=== PATIENT | female | born 1995 | race Caucasian/White ===

== ENCOUNTER 2024-05-31 16:51 | Inpatient (IN) | payer OTHER ==
[~2024-05-31] VITALS: Ht 154.9 cm; Wt 73.2 kg
[2024-05-31] MEDS ORDERED: METF-1211 PO (17:40)
[2024-05-31] MEDS ORDERED: DOCU-385 PO (17:40)
[2024-05-31] MEDS ORDERED: ASCO500 PO (17:40)
[2024-05-31] MEDS ORDERED: FERR324T23 PO (17:40)
[2024-05-31 20:45] LABS: GLUCOMETER DEV NAME(LOC) ERT.5; GLUCOSE,POINT OF CARE 89 MG/DL (70-110)
[2024-05-31] MEDS ORDERED: DEXTROSE 50%-WATER 25 GM/50 ML SYRINGE IVP PRN (22:15)
[2024-05-31] MEDS: SODIUM CHLORIDE 0.9% 1,000 ML IV ONE (23:38)
[2024-06-01 00:31] LABS: PH,URINE DRUG SCREEN 5.5 (5.0-8.0)
[2024-06-01 00:39] LABS: ALCOHOL, URINE DRUG SCREEN NEGATIVE (NEGATIVE); AMPHET/METH SCREEN,URINE NEGATIVE (NEGATIVE); BENZODIAZEPINES SCREEN,URINE NEGATIVE (NEGATIVE); CANNABINOID SCREEN,URINE NEGATIVE (NEGATIVE); COCAINE SCREEN,URINE NEGATIVE (NEGATIVE); METHADONE SCREEN, URINE NEGATIVE (NEGATIVE); OPIATE SCREEN,URINE NEGATIVE (NEGATIVE); PHENCYCLIDINE SCREEN,URINE NEGATIVE (NEGATIVE)
[2024-06-01 00:48] LABS: BARBITURATE SCREEN, URINE NEGATIVE (NEGATIVE)
[2024-06-01 02:20] VITALS: BP 117/54; PULSE 59; RESP 16; TEMP 97.7; O2SAT 100
[2024-06-01 07:00] LABS: GLUCOMETER DEV NAME(LOC) 6S.2; GLUCOSE,POINT OF CARE 77 MG/DL (70-110)
[2024-06-01 07:08] LABS: BASOPHILS % (AUTO) 0.6 % (0.0-2.0); EOSINOPHILS % (AUTO) 1.6 % (1.0-6.0); HEMATOCRIT 34.8 % (36-46); HEMOGLOBIN 10.9 g/dL (12.0-16.0); LYMPHOCYTES # (AUTO) 2.6 K/uL (1.0-4.8); LYMPHOCYTES % (AUTO) 40.6 % (22.0-44.0); MEAN CORPUSCULAR HEMOGLOBIN 22.6 pg (26.0-34.0); MEAN CORPUSCULAR HGB CONC 31.3 G/dL (31.0-37.0); MEAN CORPUSCULAR VOLUME 72 fL (80-100); MONOCYTES # (AUTO) 0.6 K/uL (0.1-1.0); NEUTROPHILS % (AUTO) 47.2 % (40.0-70.0); PLATELET COUNT (AUTO) 271 K/uL (150-450); RED BLOOD CELL COUNT(AUTO) 4.81 MIL/uL (4.00-5.20); RED CELL DISTRIBUTION WIDTH 19.2 % (11.5-14.5); WHITE BLOOD COUNT (AUTO) 6.4 K/uL (4.5-11.0)
[2024-06-01 07:26] LABS: ANION GAP 10 mmol/L (8-16); CALCIUM, TOTAL 8.7 mg/dL (8.8-10.5); CARBON DIOXIDE 26 mmol/L (22-29); CHLORIDE 105 mmol/L (98-107); CREATININE 0.97 mg/dL (0.60-1.30); GLOMERULAR FILTR. RATE CALC > 60 mL/min (>60); GLUCOSE,RANDOM 81 mg/dL (70-110); SODIUM SERUM 141 mmol/L (136-145); UREA NITROGEN, BLOOD 12 mg/dL (7-18)
[2024-06-01 08:56] LABS: RBC MORPHOLOGY COMMENT ABNORMAL RBC MORPH
[2024-06-01] MEDS: TraZODone HCL 50 MG TABLET PO SCH (12:22)
[2024-06-01] MEDS: SERTRALINE HCL 50 MG TABLET PO SCH (12:22)
[2024-06-01 12:46] LABS: GLUCOMETER DEV NAME(LOC) 6S.2; GLUCOSE,POINT OF CARE 81 MG/DL (70-110)
[2024-06-01 17:51] LABS: GLUCOMETER DEV NAME(LOC) 6S.2; GLUCOSE,POINT OF CARE 83 MG/DL (70-110)
[2024-06-01 20:00] VITALS: BP 99/61; PULSE 72; RESP 18; TEMP 98.1; O2SAT 98
[2024-06-01 22:35] LABS: GLUCOMETER DEV NAME(LOC) 6S.2; GLUCOSE,POINT OF CARE 98 MG/DL (70-110)
[2024-06-02 02:07] LABS: HEPATITIS C AB (EIA) Non Reactive (Non Reactive)
[2024-06-02 07:16] LABS: GLUCOMETER DEV NAME(LOC) 6S.2; GLUCOSE,POINT OF CARE 97 MG/DL (70-110)
[2024-06-02 07:45] VITALS: BP 109/70; PULSE 83; RESP 18; O2SAT 98
[2024-06-02 10:28] VITALS: BP 115/59; PULSE 81; RESP 20; TEMP 98.6; O2SAT 99
[2024-06-02 12:00] LABS: GLUCOMETER DEV NAME(LOC) 6S.2; GLUCOSE,POINT OF CARE 115 MG/DL (70-110)
[2024-06-02 18:30] LABS: GLUCOMETER DEV NAME(LOC) 6S.2; GLUCOSE,POINT OF CARE 116 MG/DL (70-110)
[2024-06-02] MEDS: ETHYL ALCOHOL 62% ANTISEPTIC NASAL SANITIZER 0.6 ML AMPUL NASAL SCH (20:29)
[2024-06-02 20:32] VITALS: BP 96/60; PULSE 75; RESP 18; TEMP 98.6; O2SAT 92
[2024-06-03 05:23] VITALS: BP 102/58; PULSE 68; RESP 18; TEMP 97.8; O2SAT 100
[2024-06-03 07:00] LABS: GLUCOMETER DEV NAME(LOC) 6S.2; GLUCOSE,POINT OF CARE 144 MG/DL (70-110)
[2024-06-03 07:01] LABS: GLUCOMETER DEV NAME(LOC) 6S.2; GLUCOSE,POINT OF CARE 102 MG/DL (70-110)
[2024-06-03 08:01] VITALS: BP 97/61; PULSE 76; RESP 20; TEMP 98.1; O2SAT 99
[2024-06-03 20:43] VITALS: BP 108/64; PULSE 76; RESP 18; TEMP 98.1; O2SAT 98
[2024-06-04 02:51] LABS: GLUCOMETER DEV NAME(LOC) 6S.2; GLUCOSE,POINT OF CARE 166 MG/DL (70-110)
[2024-06-04 02:51] LABS: GLUCOMETER DEV NAME(LOC) 6S.2; GLUCOSE,POINT OF CARE 117 MG/DL (70-110)
[2024-06-04 02:51] LABS: GLUCOMETER DEV NAME(LOC) 6S.2; GLUCOSE,POINT OF CARE 114 MG/DL (70-110)
[2024-06-04 06:11] LABS: GLUCOMETER DEV NAME(LOC) 6S.2; GLUCOSE,POINT OF CARE 107 MG/DL (70-110)
[2024-06-04 07:54] VITALS: BP 97/55; PULSE 63; RESP 20; TEMP 97.7; O2SAT 98
[2024-06-04] MEDS ORDERED: TRAZ-252 PO (14:35)
[2024-06-04] MEDS ORDERED: SERT-158 PO (14:35)
[2024-06-04 19:28] VITALS: BP 115/71; PULSE 83; RESP 18; TEMP 98.7; O2SAT 100
[2024-06-05 01:40] LABS: GLUCOMETER DEV NAME(LOC) 6S.2; GLUCOSE,POINT OF CARE 83 MG/DL (70-110)
== END 2024-06-04 20:50 | disposition home or self-care (01) | DRG 918 ==
LOC: EMS 16:51 → EDH 19:04 → 6N 06-01 02:19
PROVIDERS: ADMIT Internal Medicine; ATTEND Internal Medicine
PROC: GZ56ZZZ Individual Psychotherapy, Supportive (ICD-10-PCS; principal; 2024-06-01)
DX: T38.3X2A Poisoning by insulin and oral hypoglycemic [antidiabetic] drugs, intentional self-harm, initial encounter (principal); R45.851 Suicidal ideations; F32.2 Major depressive disorder, single episode, severe without psychotic features; E11.9 Type 2 diabetes mellitus without complications; D64.9 Anemia, unspecified; F43.0 Acute stress reaction; Y92.89 Other specified places as the place of occurrence of the external cause
CPT/HCPCS: 80048; 80307; 82962; 85025; 86803; 87081; 87340; 87481; 99285; G0378; J7030